=== PATIENT | female | born 1960 | race Caucasian/White ===

== ENCOUNTER 2022-01-09 07:39 | Day surgery (SDC) | payer OTHER, SELFPAY ==
[2022-01-09] VITALS (7 sets, daily range): BP systolic 104–126; BP diastolic 54–88; PULSE 60–82; RESP 16–18; TEMP 36.1–36.4; O2SAT 94–100; BMI 39.0
[2022-01-09] MEDS: Lactated Ringers 1,000 ML 15 ML IV (08:34)
--- NOTE | 2022-01-09 08:35 | PCM.HP.BLA ---
History and Physical Date of Admission: 01/09/22 Chief complaint: Postmenopausal bleeding History of present illness: 61-year-old scheduled for hysteroscopy D&C polypectomy. No medical changes all questions answered and consent signed. Obstetric history: Patient G1, P1 status post vaginal delivery Past medical history: Back pain Medications: Neurontin Past surgical history: Back surgery Allergies: No known drug allergies Family history: Denies his DVT or PE Social history: Denies smoking, alcohol, drug use Review of systems: Besides above pertinent positives a full review of systems was performed and found to be negative Physical exam: Vitals: Blood pressure 126/54 pulse 72 respiratory rate 18 Fahrenheit SPO2 97% on room air General: Normal-appearing no acute distress HEENT: Normocephalic/atraumatic no cervical lymphadenopathy Cardiac/respiratory: No use of accessory muscles, nonlabored breathing Abdomen: Soft, nontender, nondistended Extremities: No peripheral edema normal peripheral pulses Psych: Normal affect normal demeanor nonpressured speech Assessment plan: 61-year-old for hysteroscopy D&C polypectomy. Educated patient on risks benefits alternatives. Patient states understanding and wished to proceed. All questions were answered and consent was signed
--- NOTE | 2022-01-09 09:45 | EMB_PTH ---
PATIENT: XI LIMON LOC: [facility] U#:[id number] AGE/SX: 61/F ROOM: RE01/09/[address]: Dr. Roberto Carlos Lang MD : 1960 BED: DIS: 01/09/2022 SPEC #: [id number] RECD: 01/09/22 11:09 STATUS: JANN REQ #: [id number] AVILA: 01/09/22 09:[address]: Roberto Carlos Lang DEPT: SURGICAL PATHOLOGY RECD BY: Tigist Fraser ENTERED: 01/09/22 13:30 SP TYPE: ENDOM BX/C OTHR DR: Dr. Mamadou Ang MD Tissues: A - Endometrium, NOS B - Endometrium, NOS Procedures: Surgery Specimen Level IV HEADER OPERATION: Hysteroscopy, D & C Symphion, polypectomy PRE-OP DIAGNOSIS: Postmenopausal bleeding TISSUE SUBMITTED: A ? Endometrial curettings, B ? Endometrial polyp MICROSCOPIC DIAGNOSIS A. Endometrial curettings: Simple and focal complex endometrial hyperplasia without atypia. B. Endometrial polyp, polypectomy: Endometrial polyp with simple and focal complex hyperplasia without atypia. CHRISTOPH:rory 01/10/2022 COMMENT Clinical correlation and appropriate follow up are necessary. MICROSCOPIC DESCRIPTION Slides are reviewed. GROSS DESCRIPTION A - Received in fixative is one container labeled with the patient's name and designated endometrial curettings. The specimen consists of multiple irregular fragments of marinelli-pink soft tissue that in aggregate measure 5 x 3 x 0.3 cm. The specimen is totally submitted in two cassettes. B - Received in fixative is one container labeled with the patient's name and designated endometrial polyp. The specimen consists of a pink, congested polyp measuring 8 x 1.5 x 0.5 cm. Sections reveal hemorrhagic cut surfaces. The entire specimen is submitted in five cassettes. Cassette 1 contains the base of polyp. / CHRISTOPH:rory 01/09/2022 TC:5 CPT: 53319 x2
--- NOTE | 2022-01-09 09:54 | DCINST_ITS ---
Discharge Instructions Diet Discharge Diet: No restrictions Activity Discharge Activity: Return to Normal Activity, May Drive and May Shower May resume sexual activity in: 4-6 weeks Weight Bearing Status: Weight bearing as tolerated Dressing / Incision Call your doctor if your incision/area has: Continuous Slow Oozing and Foul Smelling Discharge Call your doctor if you observe: Fever of 101 or Higher, Shortness of breath and Chest pain Follow Up Care Please Follow Up With: Roberto Carlos Lang MD When: 2 weeks post op Test Results: Test results from this visit will be discussed in further detail at your follow- up appointment, if applicable. Discharge Plan Admission Attending Provider: Roberto Carlos Lang Primary Care Provider: Mamadou Ang Discharge Orders/Prescriptions Prescriptions: No Action gabapentin 600 mg Tablet 600 mg PO BID docusate sodium [Colace] 100 mg Capsule 100 mg PO PRN PRN (Reason: Constipation) cholecalciferol (vitamin D3) [Vitamin D3] 25 mcg (1,000 unit) Tablet 25 mcg PO DAILY naproxen sodium [Aleve] 220 mg Capsule 220 mg PO BID Fiber Gummies 2 gram Tablet,Chewable 1 g PO DAILY Referrals / Follow Up: Mamadou Ang MD [Primary Care Provider] - Disposition Disposition (needs filled in before D/C Order can be placed): Home, Self Care
--- NOTE | 2022-01-09 09:55 | PCM.OPRPT ---
Report of Operation Date of Procedure: 01/09/22 Pre-Operative Diagnosis: Postmenopausal bleeding Post-Operative Diagnosis: Postmenopausal bleeding, uterine polyp Surgery/Procedure Performed:: Hysteroscopy, dilation curettage, polypectomy via Symphion Description of Surgical Findings:: Surgeon: Roberto Carlos Lang MD Anesthesia: MAC EBL: 5 cc Urine output: Not measured IV fluids: 400 cc Complication: None Pathology: Uterine polyp, endometrial curettings Findings: Fundal endometrial polyp noted 1 cm in width 4 cm in length. No other pathology noted in uterus. Fluid management system used, fluid deficit 750 cc Consent: Patient with postmenopausal bleeding and noted to have large suspected uterine polyp elects for hysteroscopy, dilation curettage, polypectomy. Patient understands risk of the procedure include but are not limited to visceral or vascular injury, prolonged hospitalization, blood loss and need for transfusion, reoperation. Patient state understanding wish to proceed. All questions were answered and consent was signed. Procedure: Patient was brought back to the OR where MAC anesthesia was found be adequate. Patient was prepared and draped in a dorsolithotomy position with yellowfin stirrups. A weighted speculum is placed in the posterior aspect of vagina and cervical dilators were used to dilate the cervix. Hysteroscope was inserted and above findings were noted. Using Symphion on device stalk of fundal polyp was transected removed from uterine cavity and sent to pathology. D&C of entire cavity was performed via Symphion on device. Endometrial curetting sent to pathology. Good hemostasis was noted. All counts were correct x2. Patient tolerated procedure well and was brought to recovery in stable condition.
[2022-01-09] MEDS: Ketorolac 30 MG/ML Syringe IV (10:21)
[2022-01-09] MEDS: Acetaminophen 500 MG Tablet 1000 MG PO (11:05)
== END 2022-01-09 11:29 | disposition home or self-care (01) ==
LOC: SDC 07:50 → AC 07:54
PROVIDERS: PCP Family Medicine; Referring Provider Obstetrics & Gynecology; Visit Provider Obstetrics & Gynecology
PROC: 0UB98ZZ Excision of Uterus, Via Natural or Artificial Opening Endoscopic (ICD-10-PCS; CPT 58558; principal; 2022-01-09 09:30)
DX: N84.0 Polyp of corpus uteri (principal); N85.01 Benign endometrial hyperplasia; Z78.0 Asymptomatic menopausal state; G25.81 Restless legs syndrome; Z98.1 Arthrodesis status
CPT/HCPCS: 58558; 00952; 88305; J7120; J2405

== ENCOUNTER 2022-01-24 17:33 | Emergency (ER) | payer OTHER, SELFPAY ==
[2022-01-24 17:33] VITALS: BP 129/84; PULSE 68; RESP 16; TEMP 36.6; O2SAT 98; BMI 38.9
--- NOTE | 2022-01-24 17:51 | EKG12_ITS ---
Test Reason : Blood Pressure : / mmHG Vent. Rate : 062 BPM Atrial Rate : 062 BPM P-R Int : 168 ms QRS Dur : 076 ms QT Int : 410 ms P-R-T Axes : 049 040 032 degrees QTc Int : 416 ms Normal sinus rhythm Septal infarct , age undetermined , cannot be excluded Abnormal ECG Confirmed by MELISSA TRAVIS, DAYAMI ([id number]), slot editor DOMINGO GONZALEZ ([id number]) on 01/26/2022 12:34:42 PM Referred By: Confirmed By:DAYAMI TORRES MD
--- NOTE | 2022-01-24 17:53 | NURSING ---
NO OLD EKGS
--- NOTE | 2022-01-24 18:04 | EX.ED.DYSGE1 ---
HPI History of Present Illness Chief Complaint: Syncope Informant: patient Narrative Narrative: Patient presents after what sounds like a syncopal or near syncopal episode with some urinary incontinence at physician's office. Patient states she was at her TEACHING ARTIST's office for a routine postop follow-up visit. She had hysteroscopy and what sounds like uterine ablation on the third. She states it was a very short procedure. She has had a little bit of spotting but no notable bleeding. She has been healing quite well. Patient states that she was in a cold room. She was in a small amount. She was very anxious which is typical for her in a physician's office. She states she has had episodes like this happen before. She was feeling a little lightheaded. Normally if she puts her head between her knees she will feel better. But they laid her back. She then thinks she may have went out for a moment. She did have urinary incontinence. But she has had urinary problems before. This is not that uncommon. The physician had seen her just start staring off into space while they were talking and they later moved back and lost control of the bladder. There was no shaking. No focal deficit. Patient feels well now. Patient states she does get anxious and has things like this happen. She never had chest pain palpitations shortness of breath and does not now. No hemoptysis. She is overall actually quite healthy. She is on gabapentin only for neuropathy from prior neck and back surgeries. This is not new or different. She feels back to baseline now. [facility] Medical History Anxiety Arthritis Back pain Bladder disease Depression Fainting History of edema History of pain when walking Leg cramps Non-smoker Post-menopausal Restless legs Home Medications cholecalciferol (vitamin D3) 25 mcg (1,000 unit) tablet (Vitamin D3) 25 mcg PO DAILY 01/02/22 [History Last Taken Unknown] docusate sodium 100 mg capsule (Colace) 100 mg PO PRN PRN Constipation 01/02/22 [History Last Taken Unknown] gabapentin 600 mg tablet 600 mg PO BID 01/02/22 [History Last Taken Unknown] inulin 2 gram chewable tablet (Fiber Gummies) 1 g PO DAILY 01/02/22 [History Last Taken Unknown] naproxen sodium 220 mg capsule (Aleve) 220 mg PO BID 01/02/22 [History Last Taken Unknown] Allergy/AdvReac Type Severity Reaction Status Date / Time No Known Allergies Allergy Verified 01/24/22 17:36 Surgical History History of lumbar fusion Hx of fusion of cervical spine Social History Smoking Status: Never smoker ROS ROS ED Constitutional Constitutional ED: Denies chills, fever(s), subjective or sweats Eyes Eyes: Denies blurry vision, change in vision or diplopia ENT ENT ED: Denies rhinorrhea or sore throat Cardiovascular Cardiovascular: Denies chest pain, palpitations or racing heartbeat Respiratory/Chest Respiratory/Chest: Denies cough, dyspnea or dyspnea on exertion Gastrointestinal Gastrointestinal: Denies abdominal pain, diarrhea, nausea or vomiting Genitourinary Genitourinary ED: Reports other Details: Mild postoperative spotting. ; Denies dysuria, hematuria or urinary frequency Integumentary Denies rash Neurologic Neurologic: Denies headache(s), paresthesias or weakness Psychiatric Psychiatric: Reports anxiety Endocrine Endocrinology: Denies polydipsia or polyuria Allergic/Immunologic Allergic/Immunologic ED: Denies urticaria EXAM Physical Exam Const Vital Signs: 01/24/22 17:33 01/24/22 17:58 Temperature 97.9 F Temperature Source Temporal Pulse Rate 68 Respiratory Rate 16 Respiratory Effort Normal Non-Labored Blood Pressure 129/84 H Blood Pressure Mean 99 Pulse Ox 98 Oxygen Delivery Method Room Air Positive well nourished and well developed General Appearance ED: well developed; Negative for cyanotic, diaphoretic, NAD or pallor HEENT Reports moist mucous membranes Eyes General Eye ED: Negative for pale conjunctiva Neck no JVD Chest Wall inspection of chest normal Resp normal respiratory effort and clear to auscultation bilaterally Resp Narrative: No pain with a deep breath. Lungs are clear. Heart is regular. Cardio regular rate and regular rhythm GI normal to inspection, nondistended, normoactive bowel sounds Palpation: soft Back/Spine no CVA tenderness Extremity normal to inspection General Extremety ED: Negative for edema or tenderness General Extremity: Negative for edema Neuro oriented x3 Neuro Narrative: Patient has some mild chronic sensory changes left upper extremity but these are chronic and not new. These are known from her prior cervical fusion surgery. Sensorium / Orientation: alert Motor Exam: strength 5/5 throughout Skin no rashes or lesions noted Skin Narrative: No pallor rashes or diaphoresis. General Skin Exam: Negative for pallor MDM MDM MDM Narrative Medical decision making narrative: Patient's EKG is unremarkable. CBC shows normal white count hemoglobin and platelets. Electrolytes are normal. No change in bicarb or gap. I think the patient likely had a syncopal/near syncopal event which she has had before. She is asymptomatic now. I think is reasonable we get her home. She is comfortable with this plan and would like to go home. Her is driving. We did discuss reasons to return and follow-up Lab Data Attestation: I reviewed the patient's lab results. Labs: Laboratory Results - last 24 hr 01/24/22 01/24/22 18:05 18:05 WBC 6.2 RBC 4.44 Hgb 14.4 Hct 42.5 MCV 95.7 MCH 32.4 H MCHC 33.9 RDW Std Deviation 42.3 RDW Coeff of Jennifer 12.1 Plt Count 298 MPV 10.2 Immature Gran % (Auto) 0.200 Neut % (Auto) 43.7 L Lymph % (Auto) 43.6 H [place] % (Auto) 9.9 Eos % (Auto) 1.8 Baso % (Auto) 0.8 Absolute Neuts (auto) 2.7 Absolute Lymphs (auto) 2.72 Nucleated RBC % 0 Sodium 139 Potassium 3.9 Chloride 104 Carbon Dioxide 29.0 Anion Gap 6 BUN 21 H Creatinine 0.74 Estim Creat Clear Calc 68.94 Est GFR (MDRD) Af Amer 102 Est GFR (MDRD) Non-Af 84 BUN/Creatinine Ratio 28.3 H Glucose 101 Calcium 9.5 EKG Initial EKG: Comments: EKG done for syncope/near syncope read by me shows a normal sinus rhythm with rate of 62. No ventricular ectopy. No acute ST elevation or depression. [place] interval, QRS duration and QTc are all normal. Discharge Plan Triage Chief Complaint: Syncope ED Provider: Calvin Horne Dx/Rx/DC Orders Clinical Impression: Syncope Instructions: ED Dizziness or Syncope ... Prescriptions: No Action gabapentin 600 mg Tablet 600 mg PO BID docusate sodium [Colace] 100 mg Capsule 100 mg PO PRN PRN (Reason: Constipation) cholecalciferol (vitamin D3) [Vitamin D3] 25 mcg (1,000 unit) Tablet 25 mcg PO DAILY naproxen sodium [Aleve] 220 mg Capsule 220 mg PO BID Fiber Gummies 2 gram Tablet,Chewable 1 g PO DAILY Primary Care Provider: Mamadou Ang Referrals: Mamadou Ang MD [Primary Care Provider] - 3-5 Days Disposition Disposition: Home, Self Care
[2022-01-24 18:16] LABS: Absolute Lymphocyte Count 2.72 X10^3/uL (0.83-4.51); Absolute Neutrophil Count 2.7 X10^3/uL (2.0-7.7); Basophil# 0.05 X10^3/uL; Basophil% 0.8 % (0-1); Eosinophil# 0.11 X10^3/uL; Eosinophils% 1.8 % (0-5); Hematocrit 42.5 % (37-47); Hemoglobin 14.4 g/dL (12.0-15.0); Lymphocyte # 2.72 X10^3/ul (0.83-4.51); Lymphocyte % 43.6 % (19-41); Mean Corp Hgb Conc 33.9 g/dL (32-36); Mean Corpuscular Hgb 32.4 pg (27.0-32.0); Mean Corpuscular Volume 95.7 fL (81-99); Mean Platelet Vol. 10.2 fl (6.2-12.0); Monocyte# 0.62 X10^3/uL; Monocyte% 9.9 % (0-10); NRBC Flagged by Analyzer 0 % (0-5); Neutrophil # 2.73 X10^3/uL (2.7-7.7); Neutrophil % 43.7 % (47-70); Platelet Count 298 K/mm3 (150-450); RBC Distribution Width CV 12.1 % (11.6-14.6); RBC Distribution Width SD 42.3 fl (35.1-43.9); Red Blood Count 4.44 M/mm3 (4.2-5.4); White Blood Count 6.2 K/mm3 (4.4-11.0)
[2022-01-24 18:38] LABS: Anion Gap 6 (5-15); BUN 21 mg/dL (7-18); BUN/Creat Ratio 28.3 RATIO (10-20); Calcium,Total 9.5 mg/dL (8.5-10.1); Chloride 104 mmol/L (98-107); Creatinine, Serum 0.74 mg/dL (0.55-1.02); EST Glomerular Filtration Rate 84 mL/min (>60); Est Glom Filt Rate - Afr Amer 102 mL/min (>60); Estimated Creatinine Clearance 68.94 ml/min; Glucose 101 mg/dL (74-106); Potassium 3.9 mmol/L (3.5-5.1); Sodium Level 139 mmol/L (136-145)
[2022-01-24 19:02] VITALS: BP 138/77; PULSE 62; RESP 15; O2SAT 98
== END 2022-01-24 19:03 | disposition home or self-care (01) ==
PROVIDERS: Emergency Provider Emergency Medicine; PCP Family Medicine; Visit Provider Emergency Medicine
DX: R55 Syncope and collapse (principal); R32 Unspecified urinary incontinence; F41.9 Anxiety disorder, unspecified
CPT/HCPCS: 80048; 85025; 93005; 99284; A4216